=== PATIENT | male | born 1980 | race Caucasian/White ===

== ENCOUNTER 2016-12-20 15:55 | Emergency (ER) | payer BC ==
[~2016-12-20] VITALS: Ht 175.3 cm; Wt 84.5 kg
[~2016-12-20 15:55] MED LIST: CARI250T
[2016-12-20 16:13] VITALS: BP 155/78
[2016-12-20] MEDS ORDERED: PROPARACAINE OPHTH 0.5%, 15ML ONE ×2 (16:27→16:34)
[2016-12-20] MEDS ORDERED: FLUORESCEIN OPHTHALMIC 1 MG STRIP ONE ×2 (16:27→16:34)
[2016-12-20] MEDS ORDERED: FLUORESCEIN OPHTHALMIC 1 MG STRIP EACHEYE ONE (16:30)
[2016-12-20] MEDS ORDERED: PROPARACAINE OPHTH 0.5%, 15ML EACHEYE ONE (16:30)
[2016-12-20] MEDS ORDERED: CIPROFLOXACIN OPHTH SOLN 0.3%, 5ML RIGHTEYE SCH (18:00)
== END 2016-12-20 17:00 | disposition home or self-care (01) ==
LOC: ED 16:50
DX: H10.89 Other conjunctivitis (principal)
CPT/HCPCS: 99283

== ENCOUNTER 2016-12-24 11:46 | Emergency (ER) | payer BC ==
[~2016-12-24] VITALS: Ht 175.3 cm; Wt 85.9 kg
[2016-12-24 11:47] VITALS: BP 136/90
[2016-12-24] MEDS ORDERED: FLUORESCEIN OPHTHALMIC 1 MG STRIP ONE (12:14)
[2016-12-24] MEDS ORDERED: PROPARACAINE OPHTH 0.5%, 15ML ONE (12:14)
== END 2016-12-24 14:41 | disposition home or self-care (01) ==
LOC: ED 13:59
DX: H10.231 Serous conjunctivitis, except viral, right eye (principal); Z88.0 Allergy status to penicillin
CPT/HCPCS: 99283

== ENCOUNTER 2019-06-26 12:39 | Emergency (ER) | payer BC, OTHER ==
[~2019-06-26] VITALS: Ht 175.3 cm; Wt 109.6 kg
--- NOTE | 2019-06-26 13:09 | NUR ---
PT TO [facility] PER PEDIS WITH STRONG STEADY GAIT. PT STATES "I HAVE JUST BEEN FEELING MISERABLE. EVERYTHING HURTS, MY HEAD IS KILLING ME, MY EYES HURT AND I START SWEATING FOR NO REASON. I HAVE BEEN TAKING THERA FLU" PT TEMP ON ARRIVAL 100.8. ASSESSMENT PERFORMED AND ORDERS PLACED.
[2019-06-26 13:18] LABS: RAPID INFLUENZA A POSITIVE (Negative); RAPID INFLUENZA B Negative (Negative)
[2019-06-26] MEDS ORDERED: IBUPROFEN 600 MG TABLET ONE (13:18)
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
[2019-06-26] MEDS ORDERED: IBUPROFEN 200 MG TABLET PO ONE (13:30)
--- NOTE | 2019-06-26 13:40 | NUR ---
DISCHARGE INSTRUCTIONS GIVEN TO PATIENT WITH PRESCRIPTION AND WORK NOTE. PT VERBALIZES UNDERSTANDING OF INSTRUCTIONS, MEDICATIONS AND FOLLOW UP. PT AMBULATED OUT OF ED PER PEDIS.
[2019-06-26 13:41] VITALS: BP 136/79
== END 2019-06-26 13:47 | disposition home or self-care (01) ==
LOC: ED 13:40
DX: J10.1 Influenza due to other identified influenza virus with other respiratory manifestations (principal)
CPT/HCPCS: 71046; 87400; 99284

== ENCOUNTER 2020-10-20 23:27 | Emergency (ER) | payer OTHER ==
[~2020-10-20] VITALS: Ht 175.3 cm; Wt 104.9 kg
[2020-10-20] MEDS ORDERED: OMNIPAQUE 350 MG/ML, 100ML BOTTLE ONE (23:57)
[2020-10-21] MEDS ORDERED: SODIUM CHLORIDE 0.9% 1,000ML IVBOLUS ONE
[2020-10-21] MEDS ORDERED: SODIUM CHLORIDE FLUSH 10ML SYR IVF ONE
[2020-10-21 00:12] LABS: BASOPHILS % (AUTO) 1 % (0-1); EOSINOPHILS % (AUTO) 3 % (1-7); LYMPHOCYTES % (AUTO) 44 % (22-44); MEAN CORPUSCULAR HGB CONC 34.4 g/dL (33.2-36.2); MEAN PLATELET VOLUME 7.5 fL (7.4-10.4); MONOCYTES % (AUTO) 6 % (2-9); NEUTROPHILS % (AUTO) 46 % (42-75); PLATELET COUNT 267 x10^3/uL (130-400); RED BLOOD COUNT 4.66 x10^6/uL (4.38-5.82); RED CELL DISTRIBUTION WIDTH 13.6 % (9.4-14.8)
[2020-10-21 00:17] LABS: ALBUMIN 3.9 g/dL (3.4-5.0); ANION GAP 10 mmol/L (5-15); CALCIUM 8.8 mg/dL (8.5-10.1); CHLORIDE 107 mmol/L (98-107); CREATININE 1.38 mg/dL (0.7-1.3)
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
[2020-10-21] MEDS ORDERED: LIDOCAINE-MPF 1%, 5ML ONE (00:52)
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
[2020-10-21] MEDS ORDERED: LIDOCAINE-MPF 1%, 5ML INFIL ONE (01:00)
[2020-10-21] MEDS ORDERED: DIPH,PERTUSS(ACELL),TET VAC/PF 0.5 ML IM-VACC ONE ×2 (01:12)
[2020-10-21 01:46] VITALS: BP 121/74
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
== END 2020-10-21 01:50 | disposition home or self-care (01) ==
LOC: ED 10-21
DX: S31.110A Laceration without foreign body of abdominal wall, right upper quadrant without penetration into peritoneal cavity, initial encounter (principal); R00.0 Tachycardia, unspecified; R07.9 Chest pain, unspecified; W45.8XXA Other foreign body or object entering through skin, initial encounter; Y93.89 Activity, other specified; Y92.410 Unspecified street and highway as the place of occurrence of the external cause; Y99.8 Other external cause status
CPT/HCPCS: 12031; 36415; 71045; 74177; 80048; 82040; 85025; 90471; 90715; 96360; 99285; J7030; Q9967

== ENCOUNTER 2020-10-29 07:54 | Emergency (ER) | payer OTHER ==
[~2020-10-29] VITALS: Ht 175.3 cm; Wt 104.7 kg
[2020-10-29 08:02] VITALS: BP 155/110
--- NOTE | 2020-10-29 08:44 | NUR ---
Patient given wound care/discharge instructions and they have confirmed that they understand the instructions. Patient ambulatory with steady gait. NAD, all questions answered appropriately, denies additional needs at this time. No personal belongings left in room after discharge.
== END 2020-10-29 08:46 | disposition home or self-care (01) ==
LOC: ED 08:40
DX: S31.119D Laceration without foreign body of abdominal wall, unspecified quadrant without penetration into peritoneal cavity, subsequent encounter (principal); X58.XXXD Exposure to other specified factors, subsequent encounter
CPT/HCPCS: 99281